=== PATIENT | female | born 1965 | race Caucasian/White ===

== ENCOUNTER 2024-08-18 07:55 | Outpatient (AMB) | payer MEDICAID, SELFPAY ==
[2024-08-18 08:14] VITALS: BP 121/72; PULSE 96; RESP 19; TEMP 35.4; O2SAT 95; BMI 39.7
--- NOTE | 2024-08-18 08:14 | PD.ORTHCLVIS ---
Vital signs 08/18/24 08:14 Height 1.7 m Height Method Stated Weight 114.872 kg Weight Measurement Method Standing Scale BMI 39.7 BP 121/72 Blood Pressure Source Automatic Cuff Blood Pressure Location Left Upper Arm Position Sitting Respiration 19 Pulse 96 Pulse Source Monitor Temp 95.8 F L Temp Source Temporal Artery Scan Pulse Oximetry (%) 95 Oxygen Delivery Method Room Air Med/Allergies Allergies & Medications Allergies shellfish derived Allergy (Unknown, Verified 08/18/24 08:15) Medication Reconciliation lisinopril 30 mg tablet 60 mg PO QDAY #0 tabs 01/01/15 [History Confirmed 08/18/24] Cetirizine * (ZYRTEC *) 5 mg PO QAM #0 tabs 04/12/16 [History Confirmed 08/18/24] furosemide 20 mg tablet (Lasix) 20 mg PO QDAY #0 tabs 04/12/16 [History Confirmed 08/18/24] albuterol sulfate 90 mcg/actuation aerosol inhaler (ProAir HFA) 2 puff inhalation Q4HR PRN WHEEZING #1 inh 06/18/17 [Rx Confirmed 08/18/24] apixaban 5 mg tablet (Eliquis) 5 mg PO BID Blood Thinner #60 tabs 06/18/17 [Rx Confirmed 08/18/24] cephalexin 500 mg capsule (Keflex) 500 mg PO QID #30 caps 01/06/18 [Rx Confirmed 08/18/24] dextromethorphan-guaifenesin 10 mg-200 mg capsule (Robitussin Cough-Chest Congestion DM) 1 tab-cap PO Q6H PRN cough #20 caps 01/06/18 [Rx Confirmed 08/18/24] meloxicam 7.5 mg tablet 7.5 mg PO QDAY #45 tabs 11/09/23 [Rx Confirmed 08/18/24] meloxicam 7.5 mg tablet 7.5 mg PO QDAY #45 tabs 02/15/24 [Rx Confirmed 08/18/24] meloxicam 7.5 mg tablet 7.5 mg PO QDAY #45 tabs 05/19/24 [Rx Confirmed 08/18/24] Exam Exam Patient is in no acute distress and is cooperative with the examination today. Breathing is nonlabored. In no respiratory distress. Bilateral extremities were evaluated and demonstrates sensation intact to light touch. Palpable pedal pulses are present. No significant edema is present. Bilateral hips were examined. The patient has no pain with log roll of the hips. Internal rotation to 30 degrees and external rotation to 30 degrees is painless. Negative FADIR. The left knee was examined. The left knee is in [varus] alignment. Range of motion from [0-115] degrees. Knee is stable to varus and valgus as well as AP translation with <5mm. Patient has a [negative] McMurrays. There is [no] pain with patellofemoral compression and [no] crepitus noted. The knee is [tender] to palpation [medially]. The right knee was also examined. The right knee is in [varus] alignment. Range of motion from [0-120] degrees. Knee is stable to varus and valgus as well as AP translation with <5mm. Patient has a [negative] McMurrays. There is [no] pain with patellofemoral compression and [no] crepitus noted. The knee is [tender] to palpation [medially]. X-rays demonstrate moderate arthritis bilaterally. The joint space narrowing is severe on the left and moderate on the left. Assessment and Plan Problem List (1) Bilateral knee pain: Status: Acute Plan: Patient is a pleasant 58-year-old female with bilateral knee pain and osteoarthritis. She ambulates using a walker. The pains been affecting quality of life. The patient continues to lose weight and the lymphedema is certainly better than when I last saw her. We will see if she can continue to lose weight. She should get a medical and cardiac clearance from her primary care doctor in preparation for surgery. I want to make sure she is optimized medically before you proceed (2) Bilateral primary osteoarthritis of knee: Status: Acute Office Procedures GNS Level of Care Nursing/Assessment Patient Status: Established Patient Nursing Assessment/Reassesment: Medication Reconciliation, Update PMH in EMR and Vital Signs Coordination of Care: Complex Care and Chronic Disease 1-5, Consent,records obtained, informed consent, Education Simp Pt/Fam, Results/Orders obtained and Staff clarify orders Established Patient Charge Established Patient Point Assignment: 90 Established Patient Point Charge: EP Level 3 (80-115) [place] Intake Visit Data Collection New Patient or Established: Established Patient (seen at [facility] within 3 years) Reason for Visit:: 3 MONTH FOLLOW UP Seen by Clinical Staff ONLY (RN/MA): No Parcel Post 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 Required: No PCP or OBGYN visit in last 3 months: Yes Hx Now: No Do You Feel Safe at Home: Yes Authorities Contacted: N/A Questionairres Past Medical History Past Medical History Have you ever been diagnosed with any of the following: Cardiology Problems Myocardial Infarction: Yes (x 2 per pt 2004 &2009) Congestive Heart Failure: No Hypertension: Yes Respiratory Problems Chronic Obstructive Pulmonary Disease (COPD): No Smoking: No Smoking Cessation Counseling: No Smoking Exposure: No Tobacco Use: No Clubbing: No Exposure to Respiratory Irritants: No Intubation: No Genital/Urinary Problems Renal Disease: No Musculoskeletal Problems Arthritis: Yes (rt knee) Endocrine Problems Diabetes Mellitus Type 1: No Diabetes Mellitus Type 2: No Subjective Visit Visit for: follow up visit and knee Immunization / Flu Flu Vaccine in the Last 12 Months: No Flu Vaccine Exclusion Criteria: No Exclusion Criteria History of Present Illness Chief complaint: Bilateral knee pain Jeanette is a pleasant 59-year-old female with bilateral knee pain and bilateral knee arthritis. We have been seeing her for over a year. We have been doing injections but she reports they only last about 3 to 4 weeks at this time. She does have lymphedema and it is under control. She continues to lose weight based on diet alone Pain Pain level (0-10): 9 Pain duration: CONSTANT Pain location: inside (medial) and outside (lateral) Pain quality: sharp, aching and burning Pain timing: night, increases with activity and stairs Associated signs & symptoms: stiffness Ambulatory data Ambulatory device: walker Treatments Improvement with previous injections: No Improvement with PT: No Improvement with NSAIDS: no Review of Systems Review of Systems: All systems negative unless otherwise noted in HPI.
== END 2024-08-18 08:35 | disposition home or self-care (01) ==
LOC: HODSRG 07:55
PROVIDERS: Supervising Provider Orthopaedic Surgery Adult Reconstructive Orthopaedic Surgery; Visit Provider Orthopaedic Surgery Adult Reconstructive Orthopaedic Surgery
DX: M25.562 Pain in left knee (principal); M25.561 Pain in right knee; M17.0 Bilateral primary osteoarthritis of knee; I89.0 Lymphedema, not elsewhere classified; I10 Essential (primary) hypertension; I25.2 Old myocardial infarction
CPT/HCPCS: 99213; G0463

== ENCOUNTER 2024-11-10 08:00 | Outpatient (AMB) | payer MEDICAID, SELFPAY ==
[2024-11-10 08:14] VITALS: BP 121/80; PULSE 76; RESP 18; TEMP 36.5; O2SAT 98; BMI 41.3
--- NOTE | 2024-11-10 08:14 | ORTHONT_ITS ---
Vital signs 11/10/24 08:14 Height 1.7 m Height Method Stated Weight 119.38 kg Weight Measurement Method Standing Scale BMI 41.3 BP 121/80 Blood Pressure Source Automatic Cuff Blood Pressure Location Right Upper Arm Position Sitting Respiration 18 Pulse 76 Pulse Source Monitor Temp 97.7 F Temp Source Temporal Artery Scan Pulse Oximetry (%) 98 Oxygen Delivery Method Room Air Med/Allergies Allergies & Medications Allergies shellfish derived Allergy (Unknown, Verified 11/10/24 08:16) Medication Reconciliation lisinopril 30 mg tablet 60 mg PO QDAY #0 tabs 01/01/15 [History Confirmed ] Cetirizine * (ZYRTEC *) 5 mg PO QAM #0 tabs 04/12/16 [History Confirmed 11/10/24] furosemide 20 mg tablet (Lasix) 20 mg PO QDAY #0 tabs 04/12/16 [History Confirmed 11/10/24] albuterol sulfate 90 mcg/actuation aerosol inhaler (ProAir HFA) 2 puff inhalation Q4HR PRN WHEEZING #1 inh 06/18/17 [Rx Confirmed 11/10/24] apixaban 5 mg tablet (Eliquis) 5 mg PO BID Blood Thinner #60 tabs 06/18/17 [Rx Confirmed 11/10/24] cephalexin 500 mg capsule (Keflex) 500 mg PO QID #30 caps 01/06/18 [Rx Confirmed 11/10/24] dextromethorphan-guaifenesin 10 mg-200 mg capsule (Robitussin Cough-Chest Congestion DM) 1 tab-cap PO Q6H PRN cough #20 caps 01/06/18 [Rx Confirmed 11/10/24] meloxicam 7.5 mg tablet 7.5 mg PO QDAY #45 tabs 11/09/23 [Rx Confirmed 11/10/24] meloxicam 7.5 mg tablet 7.5 mg PO QDAY #45 tabs 02/15/24 [Rx Confirmed 11/10/24] meloxicam 7.5 mg tablet 7.5 mg PO QDAY #45 tabs 05/19/24 [Rx Confirmed 11/10/24] Exam Exam Patient is in no acute distress and is cooperative with the examination today. Breathing is nonlabored. In no respiratory distress. Bilateral extremities were evaluated and demonstrates sensation intact to light touch. Palpable pedal pulses are present. No significant edema is present. Bilateral hips were examined. The patient has no pain with log roll of the hips. Internal rotation to 30 degrees and external rotation to 30 degrees is painless. Negative FADIR. The left knee was examined. The left knee is in [varus] alignment. Range of motion from [0-115] degrees. Knee is stable to varus and valgus as well as AP translation with <5mm. Patient has a [negative] McMurrays. There is [no] pain with patellofemoral compression and [no] crepitus noted. The knee is [tender] to palpation [medially]. The right knee was also examined. The right knee is in [varus] alignment. Range of motion from [0-120] degrees. Knee is stable to varus and valgus as well as AP translation with <5mm. Patient has a [negative] McMurrays. There is [no] pain with patellofemoral compression and [no] crepitus noted. The knee is [tender] to palpation [medially]. X-rays demonstrate moderate arthritis bilaterally. The joint space narrowing is severe Assessment and Plan Problem List (1) Bilateral knee pain: Status: Acute Plan: Patient is a pleasant 58-year-old female with bilateral knee pain and osteoarthritis. She ambulates using a walker. The pains been affecting quality of life. The patient continues to lose weight and the lymphedema is certainly better than when I last saw her. We will see if she can continue to lose weight. Recommend knee cortisone injections as patient would like to proceed with conservative treatment at this time. The risks and benefits of the procedure were reviewed with the patient and patient gave verbal consent to continue with the procedure. Procedure: performed by Dr. Rangel Using sterile technique the Bilateral knees were thoroughly prepped with alcohol, and approximately 1 cc of Kenalog 40 mg/mL and 4 cc of 1% lidocaine was injected into each knee without resistance into the medial tibial femoral joint space. The patient tolerated the procedure. She reports a lot of right hip pain we will get new x-rays (2) Bilateral primary osteoarthritis of knee: Status: Acute Office Procedures GNS Level of Care Nursing/Assessment Patient Status: Established Patient Nursing Assessment/Reassesment: Medication Reconciliation, Update PMH in EMR and Vital Signs Coordination of Care: Complex Care and Chronic Disease 1-5, Education Complex Pt/Fam, Consent,records obtained, informed consent, Results/Orders obtained and Staff clarify orders Established Patient Charge Established Patient Point Assignment: 95 Established Patient Point Charge: EP Level 3 (80-115) Surgical Proc/IM SQ injection Major Surgical Procedure: Yes (BILATERAL KNEE INJECTION) Medication Given Medication Given Medication Given: Yes Documented Dose Given: 8 Route: Infiitration Medication Given Medication Given Medication Given: Yes Documented Dose Given: 2 Route: Infiitration Office Meds Xylocaine 10 mg/mL (1 %) injection solution Performing Provider: Sammy Rangel MD Performing Location: [facility] Administered by: Sammy Rangel MD on 11/10/24 09:25 Dose Route Admin Location Dispensed Lot Number Expiration Date [facility] [employer]ing Specialist 40 mL Infiltration 40 mL [id number] 02/06/28 95071-759-19 [facility] triamcinolone acetonide 40 mg/mL suspension for injection Performing Provider: Sammy Rangel MD Performing Location: [facility] Administered by: Sammy Rangel MD on 11/10/24 09:25 Dose Route Admin Location Dispensed Lot Number Expiration Date [facility] Contracting Specialist 80 mg Infiltration 2 mL [id number] 01/05/26 8432-4125-03 [employer] [place] Intake Visit Data Collection New Patient or Established: Established Patient (seen at [facility] within 3 years) Reason for Visit:: 3 MONTH FOLLOW UP Seen by Clinical Staff ONLY (RN/MA): No Verbal consent obtained for Telemed visit?: No 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: No PCP or OBGYN visit in last 3 months: Yes Hx Now: No Do You Feel Safe at Home: Yes Authorities Contacted: N/A Questionairres Past Medical History Past Medical History Have you ever been diagnosed with any of the following: Cardiology Problems Myocardial Infarction: Yes (x 2 per pt 2004 &2009) Congestive Heart Failure: No Hypertension: Yes Respiratory Problems Chronic Obstructive Pulmonary Disease (COPD): No Smoking: No Smoking Cessation Counseling: No Smoking Exposure: No Tobacco Use: No Clubbing: No Exposure to Respiratory Irritants: No Intubation: No Genital/Urinary Problems Renal Disease: No Musculoskeletal Problems Arthritis: Yes (rt knee) Endocrine Problems Diabetes Mellitus Type 1: No Diabetes Mellitus Type 2: No Subjective Visit Visit for: follow up visit Immunization / Flu Flu Vaccine in the Last 12 Months: No Flu Vaccine Exclusion Criteria: No Exclusion Criteria History of Present Illness Chief complaint: 3 MONTH FOLLOW UP Jeanette is a pleasant 59-year-old female with bilateral knee pain and bilateral knee arthritis. We have been seeing her for over a year. We have been doing injections but she reports they only last about 3 to 4 weeks at this time. She does have lymphedema and it is under control. She continues to lose weight based on diet alone. She reports the right hip has been hurting quite a bit. We will order x-rays of the right hip Pain Pain level (0-10): 8 Pain duration: COMES AND GOES Pain location: inside (medial) and outside (lateral) Pain quality: sharp Pain timing: night, increases with activity and stairs Associated signs & symptoms: stiffness Ambulatory data Ambulatory device: walker Treatments Improvement with previous injections: No Improvement with PT: No Improvement with NSAIDS: no Review of Systems Review of Systems: All systems negative unless otherwise noted in HPI.
--- NOTE | 2024-11-10 08:34 | XR_ITS ---
Examination:Right hip AP, lateral, AP pelvis 3 views Technique: Hip AP lateral, AP pelvis, 3 views Exam date and time:November 10, 2024 0847 hours Comparison March 23, 2016 INDICATIONS: Right hip pain years. FINDINGS: Moderate right hip osteoarthritis No right hip fracture or dislocation Mild to moderate narrowing left hip joint Bones of the pelvis intact IMPRESSION: Moderate right hip osteoarthritis.
== END 2024-11-10 08:43 | disposition home or self-care (01) ==
PROVIDERS: Supervising Provider Orthopaedic Surgery Adult Reconstructive Orthopaedic Surgery; Visit Provider Orthopaedic Surgery Adult Reconstructive Orthopaedic Surgery
DX: M25.562 Pain in left knee (principal); M25.561 Pain in right knee; M17.0 Bilateral primary osteoarthritis of knee; I89.0 Lymphedema, not elsewhere classified; I10 Essential (primary) hypertension; I25.2 Old myocardial infarction
CPT/HCPCS: 20610; 73502; 99213; J3301; J3490; G0463

== ENCOUNTER 2024-11-23 08:03 | Outpatient (AMB) | payer MEDICAID, SELFPAY ==
[2024-11-23 08:16] VITALS: BP 109/68; PULSE 65; RESP 17; TEMP 36.9; O2SAT 94; BMI 40.0
--- NOTE | 2024-11-23 08:16 | ORTHONT_ITS ---
Vital signs 11/23/24 08:16 Height 1.7 m Height Method Stated Weight 115.723 kg Weight Measurement Method Standing Scale BMI 40.0 BP 109/68 Blood Pressure Source Automatic Cuff Blood Pressure Location Right Upper Arm Position Sitting Respiration 17 Pulse 65 Pulse Source Monitor Temp 98.4 F Temp Source Temporal Artery Scan Pulse Oximetry (%) 94 L Oxygen Delivery Method Room Air Med/Allergies Allergies & Medications Allergies shellfish derived Allergy (Unknown, Verified 11/23/24 08:17) Medication Reconciliation lisinopril 30 mg tablet 60 mg PO QDAY #0 tabs 01/01/15 [History Confirmed 11/23/24] Cetirizine * (ZYRTEC *) 5 mg PO QAM #0 tabs 04/12/16 [History Confirmed 11/23/24] furosemide 20 mg tablet (Lasix) 20 mg PO QDAY #0 tabs 04/12/16 [History Confirmed 11/23/24] albuterol sulfate 90 mcg/actuation aerosol inhaler (ProAir HFA) 2 puff inhalation Q4HR PRN WHEEZING #1 inh 06/18/17 [Rx Confirmed 11/23/24] apixaban 5 mg tablet (Eliquis) 5 mg PO BID Blood Thinner #60 tabs 06/18/17 [Rx Confirmed 11/23/24] cephalexin 500 mg capsule (Keflex) 500 mg PO QID #30 caps 01/06/18 [Rx Confirmed 11/23/24] dextromethorphan-guaifenesin 10 mg-200 mg capsule (Robitussin Cough-Chest Congestion DM) 1 tab-cap PO Q6H PRN cough #20 caps 01/06/18 [Rx Confirmed 11/23/24] meloxicam 7.5 mg tablet 7.5 mg PO QDAY #45 tabs 11/09/23 [Rx Confirmed 11/23/24] meloxicam 7.5 mg tablet 7.5 mg PO QDAY #45 tabs 02/15/24 [Rx Confirmed 11/23/24] meloxicam 7.5 mg tablet 7.5 mg PO QDAY #45 tabs 05/19/24 [Rx Confirmed 11/23/24] Exam Exam Patient is in no acute distress and is cooperative with the examination today. Breathing is nonlabored. In no respiratory distress. Bilateral extremities were evaluated and demonstrates sensation intact to light touch. Palpable pedal pulses are present. No significant edema is present. Bilateral hips were examined. The patient has no pain with log roll of the hips. Internal rotation to 30 degrees and external rotation to 30 degrees is painless. Negative FADIR. The left knee was examined. The left knee is in [varus] alignment. Range of motion from [0-115] degrees. Knee is stable to varus and valgus as well as AP translation with <5mm. Patient has a [negative] McMurrays. There is [no] pain with patellofemoral compression and [no] crepitus noted. The knee is [tender] to palpation [medially]. The right knee was also examined. The right knee is in [varus] alignment. Range of motion from [0-120] degrees. Knee is stable to varus and valgus as well as AP translation with <5mm. Patient has a [negative] McMurrays. There is [no] pain with patellofemoral compression and [no] crepitus noted. The knee is [tender] to palpation [medially]. X-rays demonstrate moderate arthritis bilaterally. X-rays of the bilateral hips demonstrate moderate arthritis Assessment and Plan Problem List (1) Bilateral knee pain: Status: Acute Plan: Patient is a pleasant 58-year-old female with bilateral knee pain and osteoarthritis. She ambulates using a walker. The patient continues to lose weight and the lymphedema is certainly better than when I last saw her. We will see if she can continue to lose weight. Recommend knee cortisone injections as patient would like to proceed with conservative treatment at this time. The risks and benefits of the procedure were reviewed with the patient and patient gave verbal consent to continue with the procedure. Procedure: performed by Dr. Rangel Using sterile technique the Bilateral knees were thoroughly prepped with alcohol, and approximately 1 cc of Kenalog 40 mg/mL and 4 cc of 1% lidocaine was injected into each knee without resistance into the medial tibial femoral joint space. The patient tolerated the procedure. (2) Bilateral primary osteoarthritis of knee: Status: Acute Office Procedures GNS Level of Care Nursing/Assessment Patient Status: Established Patient Nursing Assessment/Reassesment: Medication Reconciliation and Update PMH in EMR Coordination of Care: Complex Care and Chronic Disease 1-5, Consent,records obtained, informed consent, Education Simp Pt/Fam, Results/Orders obtained and Staff clarify orders Established Patient Charge Established Patient Point Assignment: 75 Established Patient Point Charge: EP Level 2 (40-75) [place] Intake Visit Data Collection New Patient or Established: Established Patient (seen at [facility] within 3 years) Reason for Visit:: FOLLOW UP RT HIP XRAY Seen by Clinical Staff ONLY (RN/MA): No Plumber And 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 Required: No PCP or OBGYN visit in last 3 months: Yes Hx Now: No Do You Feel Safe at Home: Yes Authorities Contacted: N/A Questionairres Past Medical History Past Medical History Have you ever been diagnosed with any of the following: Cardiology Problems Myocardial Infarction: Yes (x 2 per pt 2004 &2009) Congestive Heart Failure: No Hypertension: Yes Respiratory Problems Chronic Obstructive Pulmonary Disease (COPD): No Smoking: No Smoking Cessation Counseling: No Smoking Exposure: No Tobacco Use: No Clubbing: No Exposure to Respiratory Irritants: No Intubation: No Genital/Urinary Problems Renal Disease: No Musculoskeletal Problems Arthritis: Yes (rt knee) Endocrine Problems Diabetes Mellitus Type 1: No Diabetes Mellitus Type 2: No Subjective Visit Visit for: follow up visit and hip (RIGHT HIP) Immunization / Flu Flu Vaccine in the Last 12 Months: Yes Flu Vaccine Exclusion Criteria: Already Received History of Present Illness Chief complaint: 3 MONTH FOLLOW UP Jeanette is a pleasant 59-year-old female with bilateral knee pain and bilateral knee arthritis. We have been seeing her for over a year. We have been doing injections but she reports they only last about 3 to 4 weeks at this time. She does have lymphedema and it is under control. She continues to lose weight based on diet alone. Personal History Red flag PMH: none Pain Pain level (0-10): 6 Pain duration: 1 DAY Pain location: groin Pain quality: sharp Pain timing: increases with activity (MANAGER UNIT ) Associated signs & symptoms: none Ambulatory data Ambulatory device: walker Walking distance (minutes): 5 Treatments Number of previous injections: 0 Improvement with previous injections: No Number of Physical Therapy sessions: 0 Improvement with PT: No Improvement with NSAIDS: n/a Review of Systems Review of Systems: All systems negative unless otherwise noted in HPI.
== END 2024-11-23 08:46 | disposition home or self-care (01) ==
LOC: HODSRG 08:03
PROVIDERS: Supervising Provider Orthopaedic Surgery Adult Reconstructive Orthopaedic Surgery; Visit Provider Orthopaedic Surgery Adult Reconstructive Orthopaedic Surgery
DX: M25.562 Pain in left knee (principal); M25.561 Pain in right knee; M17.0 Bilateral primary osteoarthritis of knee; I10 Essential (primary) hypertension; I25.2 Old myocardial infarction; I89.0 Lymphedema, not elsewhere classified
CPT/HCPCS: 20610; 99212; 99213; J3301; J3490; G0463

== ENCOUNTER 2025-03-02 08:12 | Outpatient (AMB) | payer MEDICAID, SELFPAY ==
--- NOTE | 2025-03-02 08:16 | PD.ORTHCLVIS ---
Vital signs 03/02/25 08:22 Height 1.7 m Height Method Measured Weight 115.468 kg Weight Measurement Method Standing Scale BMI 39.9 BP 107/72 Blood Pressure Source Automatic Cuff Blood Pressure Location Right Upper Arm Position Sitting Respiration 18 Pulse 91 Pulse Source Monitor Temp 96.1 F L Temp Source Temporal Artery Scan Pulse Oximetry (%) 94 L Oxygen Delivery Method Room Air Med/Allergies Allergies & Medications Allergies shellfish derived Allergy (Unknown, Verified 03/02/25 08:23) Medication Reconciliation lisinopril 30 mg tablet 60 mg PO QDAY #0 tabs 01/01/15 [History Confirmed 03/02/25] Cetirizine * (ZYRTEC *) 5 mg PO QAM #0 tabs 04/12/16 [History Confirmed 03/02/25] furosemide 20 mg tablet (Lasix) 20 mg PO QDAY #0 tabs 04/12/16 [History Confirmed 03/02/25] albuterol sulfate 90 mcg/actuation aerosol inhaler (ProAir HFA) 2 puff inhalation Q4HR PRN WHEEZING #1 inh 06/18/17 [Rx Confirmed 03/02/25] apixaban 5 mg tablet (Eliquis) 5 mg PO BID Blood Thinner #60 tabs 06/18/17 [Rx Confirmed 03/02/25] cephalexin 500 mg capsule (Keflex) 500 mg PO QID #30 caps 01/06/18 [Rx Confirmed 03/02/25] dextromethorphan-guaifenesin 10 mg-200 mg capsule (Robitussin Cough-Chest Congestion DM) 1 tab-cap PO Q6H PRN cough #20 caps 01/06/18 [Rx Confirmed 03/02/25] meloxicam 7.5 mg tablet 7.5 mg PO QDAY #45 tabs 11/09/23 [Rx Confirmed 03/02/25] meloxicam 7.5 mg tablet 7.5 mg PO QDAY #45 tabs 02/15/24 [Rx Confirmed 03/02/25] meloxicam 7.5 mg tablet 7.5 mg PO QDAY #45 tabs 05/19/24 [Rx Confirmed 03/02/25] Exam Exam Patient is in no acute distress and is cooperative with the examination today. Breathing is nonlabored. In no respiratory distress. Bilateral extremities were evaluated and demonstrates sensation intact to light touch. Palpable pedal pulses are present. No significant edema is present. Bilateral hips were examined. The patient has no pain with log roll of the hips. Internal rotation to 30 degrees and external rotation to 30 degrees is painless. Negative FADIR. The left knee was examined. The left knee is in [varus] alignment. Range of motion from [0-115] degrees. Knee is stable to varus and valgus as well as AP translation with <5mm. Patient has a [negative] McMurrays. There is [no] pain with patellofemoral compression and [no] crepitus noted. The knee is [tender] to palpation [medially]. The right knee was also examined. The right knee is in [varus] alignment. Range of motion from [0-120] degrees. Knee is stable to varus and valgus as well as AP translation with <5mm. Patient has a [negative] McMurrays. There is [no] pain with patellofemoral compression and [no] crepitus noted. The knee is [tender] to palpation [medially]. X-rays demonstrate moderate arthritis bilaterally. X-rays of the bilateral hips demonstrate moderate arthritis Assessment and Plan Problem List (1) Bilateral knee pain: Status: Acute Plan: Patient is a pleasant 58-year-old female with bilateral knee pain and osteoarthritis. She ambulates using a walker. The patient continues to lose weight and the lymphedema is certainly better than when I last saw her. We will see if she can continue to lose weight. Recommend knee cortisone injection as patient would like to proceed with conservative treatment at this time. The risks and benefits of the procedure were reviewed with the patient and patient gave verbal consent to continue with the procedure. Procedure: performed by Dr. Rangel Using sterile technique the Right knee was thoroughly prepped with alcohol, and approximately 1 cc of Depo-Medrol 80mg/mL and 4 cc of 0.2% ropivacaine was injected without resistance into the medial tibial femoral joint space. The patient tolerated the procedure. Recommend knee cortisone injection as patient would like to proceed with conservative treatment at this time. The risks and benefits of the procedure were reviewed with the patient and patient gave verbal consent to continue with the procedure. Procedure: performed by Dr. Rangel Using sterile technique the left knee was thoroughly prepped with alcohol, and approximately 1 cc of Depo-Medrol 80mg/mL and 4 cc of 0.2% ropivacaine was injected without resistance into the medial tibial femoral joint space. The patient tolerated the procedure. (2) Bilateral primary osteoarthritis of knee: Status: Acute Office Procedures GNS Level of Care Nursing/Assessment Patient Status: Established Patient Nursing Assessment/Reassesment: Medication Reconciliation, Update PMH in EMR and Vital Signs Coordination of Care: Complex Care and Chronic Disease 1-5, Education Complex Pt/Fam, Consent,records obtained, informed consent, Results/Orders obtained and Staff clarify orders Established Patient Charge Established Patient Point Assignment: 95 Established Patient Point Charge: Level 3 (80-115) Surgical Proc/IM SQ injection Major Surgical Procedure: Yes (BILATERAL KNEE INJECTION) Medication Given Medication Given Medication Given: Yes Documented Dose Given: 1 Route: Infiitration Medication Given Medication Given Medication Given: Yes Documented Dose Given: 1 Route: Infiitration Medication Given Medication Given Medication Given: Yes Documented Dose Given: 4 Route: Infiitration Medication Given Medication Given Medication Given: Yes Documented Dose Given: 4 Route: Infiitration Office Meds methylprednisolone acetate 80 mg/mL suspension for injection Performing Provider: Sammy Rangel MD Performing Location: [facility] Administered by: Sammy Rangel MD on 03/02/25 08:38 Dose Route Admin Location Dispensed Lot Number Expiration Date [facility] [employer] 80 mg intra-articular KNEE 1 mL [id number] 07/08/26 [address]-0 [employer] methylprednisolone acetate 80 mg/mL suspension for injection Performing Provider: Sammy Rangel MD Performing Location: [facility] Administered by: Sammy Rangel MD on 03/02/25 08:38 Dose Route Admin Location Dispensed Lot Number Expiration Date [facility] [employer] 80 mg intra-articular KNEE 1 mL [id number] 07/08/26 [address]-9 [employer] ropivacaine (PF) 2 mg/mL (0.2 %) injection solution Performing Provider: Sammy Rangel MD Performing Location: [facility] Administered by: Sammy Rangel MD on 03/02/25 08:38 Dose Route Admin Location Dispensed Lot Number Expiration Date [facility] [employer] 20 mL Infiltration KNEE 20 mL [id number] 07/08/26 70909-229-75 [employer] ropivacaine (PF) 2 mg/mL (0.2 %) injection solution Performing Provider: Sammy Rangel MD Performing Location: [facility] Administered by: Sammy Rangel MD on 03/02/25 08:38 Dose Route Admin Location Dispensed Lot Number Expiration Date [facility] [employer] 20 mL Infiltration KNEE 20 mL [id number] 07/08/26 73150-210-55 [facility] [place] Intake Visit Data Collection New Patient or Established: Established Patient (seen at [facility] within 3 years) Reason for Visit:: KNEE INJECTION Seen by Clinical Staff ONLY (RN/MA): No [employer] Required: No PCP or OBGYN visit in last 3 months: Yes Hx Now: No Do You Feel Safe at Home: Yes Authorities Contacted: N/A Questionairres Past Medical History Past Medical History Have you ever been diagnosed with any of the following: Neurological Problems Cerebrovascular Accident (CVA): No Transient Ischemic Attacks (TIA): No Dementia: No Alzheimer's Disease: No Parkinson's Disease: No Brain Tumor: No Meningitis: No Seizures: No Epilepsy: No Multiple Sclerosis: No Cerebral Palsy: No Amyotrophic Lateral Sclerosis (ALS/Criselda Gehrig's): No Guillain-Point Syndrome: No Spina Bifida: No Paralysis: No Peripheral Neuropathy: No Gibbs's Palsy: No Subdural Hematoma: No Migraine: No Head Trauma: No Spinal Cord Injury: No Traumatic Brain Injury: No Cardiology Problems Myocardial Infarction: Yes (x 2 per pt 2004 &2009) Cardiac Arrhythmia: No Atrial Fibrillation: No Angina: No Heart Murmur: No Coronary Artery Disease: No Atherosclerotic Heart Disease: No Peripheral Vascular Disease: No Hypercholesterolemia: No Aneurysm: No Congestive Heart Failure: No Congenital Heart Disease: No Valvular Heart Disease: No Rheumatic Fever: No Cardiomyopathy: No Edema: No Pericarditis: No Cellulitis: No Deep Vein Thrombosis: No Hypertension: Yes Hypotension: No Varicose Veins: No Respiratory Problems Chronic Obstructive Pulmonary Disease (COPD): No Asthma: No Bronchitis: No Emphysema: No Pneumonia: No Pulmonary Fibrosis: No Tuberculosis: No Pulmonary Embolism: No Pulmonary Edema: No Sleep Apnea: No CPAP Dependent: No Respiratory Aspiration: No Dyspnea: No Orthopnea: No Hx Cough: No Cough: No Wheezing: No Chest Deformities: No Smoking: No Smoking Cessation Counseling: No Smoking Exposure: No Tobacco Use: No Clubbing: No Exposure to Respiratory Irritants: No Intubation: No Stomache/Intestinal Problems Liver Cancer: No Hepatitis: No Cirrhosis: No Pancreatic Cancer: No Pancreatitis: No Celiac Disease: No Gall Bladder Disease: No Gastrointestinal Bleed: No Esophageal Varices: No Hines's Esophagus: No Colitis: No Ulcerative Colitis: No Diverticulitis: No Diverticulosis: No Ulcer: No Colorectal Cancer: No Irritable Bowel: No Crohn's Disease: No Obstructive Bowel: No Hiatal Hernia: No Hemorrhoids: No Gastroesophageal Reflux Disease: No Polyps: No Obesity: No Genital/Urinary Problems Chronic Kidney Disease: No Renal Disease: No Kidney Stones: No Polycystic Kidney Disease: No Neurogenic Bladder: No Inguinal Hernia: No Dialysis: No Reproductive Problems Breast Cancer: No Endometriosis: No Fibroids: No Genital Herpes: No Gonorrhea: No Pelvic Inflammatory Disease: No Polycystic Ovarian Syndrome: No Previous Pregnancies: No Syphilis: No Uterine Prolapse: No Musculoskeletal Problems Muscular Dystrophy: No Myasthenia Gravis: No Marfan's Syndrome: No Bone Cancer: No Arthritis: Yes (rt knee) Rheumatoid Arthritis: No Osteoporosis: No Degenerative Disk Disease: No Gout: No Scoliosis: No Carpal Tunnel Syndrome: No Fibromyalgia: No Fractures: No Degenerative Joint Disease: No Osteomyelitis: No Poliovirus: No Head,Eye,Nose,Throat Problems Cataracts: No Glaucoma: No Blind: No Retinal Detachment: No Macular Degeneration: No Chronic Ear Infections: No Deafness: No Eye Prosthesis: No Endocrine Problems Diabetes Mellitus Type 1: No Diabetes Mellitus Type 2: No Hypoglycemia: No Vermillion's Syndrome: No Chuck's Disease: No Hyperthyroidism: No Hypothyroidism: No Thyroid Cancer: No Parathyroid Disease: No Pituitary Disease: No Systemic Lupus Erythematosus: No Syndrome of Inappropriate Antidiuretic Hormone: No Adrenal Disease: No Graves' Disease: No Blood Problems Anemia: No Leukemia: No Hemophilia: No Thalassemia: No Sickle Cell Disease: No Clotting Problems: No Psychologic Problems Schizophrenia: No Recreational Drug Use: No Bipolar Disorder: No Depression: No Anxiety: No Behavior Problems: No Self-Mutilation: No Attention Deficit Disorder: No Attention Deficit Hyperactivity Disorder: No Depression: No Post Traumatic Stress Disorder: No Eating Disorder: No Other Problems Hospitalization: No Autoimmune Disease: No Down Syndrome: No Autism: No Developmental Delay: No Cosmetic Surgery: No Shingles: No Falls: No Blood Transfusions: No Blood Transfusion Reaction: No Anesthesia Reactions: No Organ Transplant: No Chemotherapy: No Radiation Therapy: No Hyperbaric Therapy: No MRSA: No VRSA: No Vancomycin-Resistant Enterococci: No Human Immunodeficiency Virus (HIV): No Chicken Pox: No Measles: No Mumps: No Rubella (Romanian Measles): No Pertussis: No Klebsiella Pneumoniae Carbapenemase Producing Bacteria: No Clostridium Difficile: No Hepatitis A: No Hepatitis B: No Hepatitis C: No Communicable Disease: No Cancer: No Cervical Cancer: No Lung Cancer: No Ovarian Cancer: No Surgical History Angioplasty: No Appendectomy: No Bariatric Surgery: No Breast Surgery: No Cancer Surgery: No Carotid Endarterectomy: No Cholecystectomy: No Colectomy: No Colostomy: No Coronary Artery Bypass Graft: No Valve Replacement: No Herniorrhaphy: No Total Hip Replacement: No Total Knee Replacement: No Hysterectomy: No Pacemaker: No Sinus Surgery: No Splenectomy: No TAHBSO-Total Abdominal Hysterectomy: No Thyroidectomy: No Ureter Stent: No Subjective Visit Visit for: follow up visit and knee Immunization / Flu Flu Vaccine in the Last 12 Months: No Flu Vaccine Exclusion Criteria: No Exclusion Criteria History of Present Illness Chief complaint: KNEE INJECTION Jeanette is a pleasant 59-year-old female with bilateral knee pain and bilateral knee arthritis. We have been seeing her for over a year. We have been doing injections but she reports they only last about 3 to 4 weeks at this time. She does have lymphedema and it is under control. She continues to lose weight based on diet alone. Personal History Red flag PMH: none BMI Counceling provided: Yes Pain Pain level (0-10): 8 Pain duration: 1 DAY Pain location: posterior Pain quality: aching Pain timing: increases with activity Associated signs & symptoms: numbness, weakness and stiffness Ambulatory data Ambulatory device: walker Walking distance (minutes): 5 Treatments Number of previous injections: 12 Improvement with previous injections: Yes Number of Physical Therapy sessions: 0 Improvement with PT: No Improvement with NSAIDS: no Review of Systems Review of Systems: All systems negative unless otherwise noted in HPI.
[2025-03-02 08:22] VITALS: BP 107/72; PULSE 91; RESP 18; TEMP 35.6; O2SAT 94; BMI 39.9
== END 2025-03-02 08:46 | disposition home or self-care (01) ==
LOC: HODSRG 08:12
PROVIDERS: Supervising Provider Orthopaedic Surgery Adult Reconstructive Orthopaedic Surgery; Visit Provider Orthopaedic Surgery Adult Reconstructive Orthopaedic Surgery
DX: M25.562 Pain in left knee (principal); M25.561 Pain in right knee; M17.0 Bilateral primary osteoarthritis of knee; I10 Essential (primary) hypertension; I25.2 Old myocardial infarction
CPT/HCPCS: 20610; 99213; J1010; J2795; G0463

== ENCOUNTER 2025-06-05 08:01 | Outpatient (AMB) | payer MEDICAID, SELFPAY ==
--- NOTE | 2025-06-05 08:10 | ORTHONT_ITS ---
Vital signs 06/05/25 08:20 Height 1.7 m Height Method Measured Weight 114.447 kg Weight Measurement Method Standing Scale BMI 39.6 BP 119/79 Blood Pressure Source Automatic Cuff Blood Pressure Location Left Upper Arm Position Sitting Respiration 19 Pulse 82 Pulse Source Monitor Temp 97.4 F Temp Source Temporal Artery Scan Pulse Oximetry (%) 94 L Oxygen Delivery Method Room Air Med/Allergies Allergies & Medications Allergies shellfish derived Allergy (Unknown, Verified 06/05/25 08:22) Medication Reconciliation lisinopril 30 mg tablet 60 mg PO QDAY #0 tabs 01/01/15 [History Confirmed 06/05/25] Cetirizine * (ZYRTEC *) 5 mg PO QAM #0 tabs 04/12/16 [History Confirmed 06/05/25] furosemide 20 mg tablet (Lasix) 20 mg PO QDAY #0 tabs 04/12/16 [History Confirmed 06/05/25] albuterol sulfate 90 mcg/actuation aerosol inhaler (ProAir HFA) 2 puff inhalation Q4HR PRN WHEEZING #1 inh 06/18/17 [Rx Confirmed 06/05/25] apixaban 5 mg tablet (Eliquis) 5 mg PO BID Blood Thinner #60 tabs 06/18/17 [Rx Confirmed 06/05/25] cephalexin 500 mg capsule (Keflex) 500 mg PO QID #30 caps 01/06/18 [Rx Confirmed 06/05/25] dextromethorphan-guaifenesin 10 mg-200 mg capsule (Robitussin Cough-Chest Congestion DM) 1 tab-cap PO Q6H PRN cough #20 caps 01/06/18 [Rx Confirmed 06/05/25] meloxicam 7.5 mg tablet 7.5 mg PO QDAY #45 tabs 11/09/23 [Rx Confirmed 06/05/25] meloxicam 7.5 mg tablet 7.5 mg PO QDAY #45 tabs 02/15/24 [Rx Confirmed 06/05/25] meloxicam 7.5 mg tablet 7.5 mg PO QDAY #45 tabs 05/19/24 [Rx Confirmed 06/05/25] Exam Exam Patient is in no acute distress and is cooperative with the examination today. Breathing is nonlabored. In no respiratory distress. Bilateral extremities were evaluated and demonstrates sensation intact to light touch. Palpable pedal pulses are present. No significant edema is present. Bilateral hips were examined. The patient has no pain with log roll of the hips. Internal rotation to 30 degrees and external rotation to 30 degrees is painless. Negative FADIR. The left knee was examined. The left knee is in [varus] alignment. Range of motion from [0-115] degrees. Knee is stable to varus and valgus as well as AP translation with <5mm. Patient has a [negative] McMurrays. There is [no] pain with patellofemoral compression and [no] crepitus noted. The knee is [tender] to palpation [medially]. The right knee was also examined. The right knee is in [varus] alignment. Range of motion from [0-120] degrees. Knee is stable to varus and valgus as well as AP translation with <5mm. Patient has a [negative] McMurrays. There is [no] pain with patellofemoral compression and [no] crepitus noted. The knee is [tender] to palpation [medially]. X-rays demonstrate moderate arthritis bilaterally. X-rays of the bilateral hips demonstrate moderate arthritis Assessment and Plan Problem List (1) Bilateral knee pain: Status: Acute Plan: Patient is a pleasant 58-year-old female with bilateral knee pain and osteoarthritis. She ambulates using a walker. The patient continues to lose weight and the lymphedema is certainly better than when I last saw her. We will see if she can continue to lose weight. Recommend knee cortisone injection as patient would like to proceed with conservative treatment at this time. The risks and benefits of the procedure were reviewed with the patient and patient gave verbal consent to continue with the procedure. Procedure: performed by Dr. Rnagel Using sterile technique the Right knee was thoroughly prepped with alcohol, and approximately 1 cc of Depo-Medrol 80mg/mL and 4 cc of 0.2% ropivacaine was injected without resistance into the medial tibial femoral joint space. The patient tolerated the procedure. Recommend knee cortisone injection as patient would like to proceed with conser vative treatment at this time. The risks and benefits of the procedure were reviewed with the patient and patient gave verbal consent to continue with the procedure. Procedure: performed by Dr. Rangel Using sterile technique the left knee was thoroughly prepped with alcohol, and approximately 1 cc of Depo-Medrol 80mg/mL and 4 cc of 0.2% ropivacaine was injected without resistance into the medial tibial femoral joint space. The patient tolerated the procedure. (2) Bilateral primary osteoarthritis of knee: Status: Acute Office Procedures GNS Level of Care Nursing/Assessment Patient Status: Established Patient Nursing Assessment/Reassesment: Medication Reconciliation, Update PMH in EMR and Vital Signs Coordination of Care: Complex Care and Chronic Disease 1-5, Education Complex Pt/Fam, Consent,records obtained, informed consent, Results/Orders obtained and Staff clarify orders Established Patient Charge Established Patient Point Assignment: 95 Established Patient Point Charge: EP Level 3 (80-115) Surgical Proc/IM SQ injection Minor Surgical Procedure: Yes (KNEE INJECTION ) Medication Given Medication Given Medication Given: Yes Documented Dose Given: 2 Route: Infiitration Medication Given Medication Given Medication Given: Yes Documented Dose Given: 8 Route: Infiitration Office Meds methylprednisolone acetate 80 mg/mL suspension for injection Performing Provider: Sammy Rangel MD Performing Location: [facility] Administered by: Sammy Rangel MD on 06/05/25 08:58 Dose Route Admin Location Dispensed Lot Number Expiration Date Pack age [facility] Undergraduate Advisor 160 mg intra-articular KNEE 2 mL [id number] 02/05/27 [address]-9 [id number] [employer] ropivacaine (PF) 2 mg/mL (0.2 %) injection solution Performing Provider: Smamy Rangel MD Performing Location: [facility] Administered by: Sammy Rangel MD on 06/05/25 08:58 Dose Route Admin Location Dispensed Lot Number Expiration Date Pack age [facility] Undergraduate Advisor 40 mL Infiltration KNEE 40 mL [id number] 09/07/27 93001-063-18 [id number] [facility] Intake Visit Data Collection New Patient or Established: Established Patient (seen at [facility] within 3 years) Reason for Visit:: KNEE INJECTION Seen by Clinical Staff ONLY (RN/MA): No [employer] Required: No PCP or OBGYN visit in last 3 months: Yes Hx Now: No Do You Feel Safe at Home: Yes Authorities Contacted: N/A Questionairres Past Medical History Past Medical History Have you ever been diagnosed with any of the following: Neurological Problems Cerebrovascular Accident (CVA): No Transient Ischemic Attacks (TIA): No Dementia: No Alzheimer's Disease: No Parkinson's Disease: No Brain Tumor: No Meningitis: No Seizures: No Epilepsy: No Multiple Sclerosis: No Cerebral Palsy: No Amyotrophic Lateral Sclerosis (ALS/Criselda Gehrig's): No Guillain-Merigold Syndrome: No Spina Bifida: No Paralysis: No Peripheral Neuropathy: No Gibbs's Palsy: No Subdural Hematoma: No Migraine: No Head Trauma: No Spinal Cord Injury: No Traumatic Brain Injury: No Cardiology Problems Myocardial Infarction: Yes (x 2 per pt 2004 &2009) Cardiac Arrhythmia: No Atrial Fibrillation: No Angina: No Heart Murmur: No Coronary Artery Disease: No Atherosclerotic Heart Disease: No Peripheral Vascular Disease: No Hypercholesterolemia: No Aneurysm: No Congestive Heart Failure: No Congenital Heart Disease: No Valvular Heart Disease: No Rheumatic Fever: No Cardiomyopathy: No Edema: No Pericarditis: No Cellulitis: No Deep Vein Thrombosis: No Hypertension: Yes Hypotension: No Varicose Veins: No Respiratory Problems Chronic Obstructive Pulmonary Disease (COPD): No Asthma: No Bronchitis: No Emphysema: No Pneumonia: No Pulmonary Fibrosis: No Tuberculosis: No Pulmonary Embolism: No Pulmonary Edema: No Sleep Apnea: No CPAP Dependent: No Respiratory Aspiration: No Dyspnea: No Orthopnea: No Hx Cough: No Cough: No Wheezing: No Chest Deformities: No Smoking: No Smoking Cessation Counseling: No Smoking Exposure: No Tobacco Use: No Clubbing: No Exposure to Respiratory Irritants: No Intubation: No Stomache/Intestinal Problems Liver Cancer: No Hepatitis: No Cirrhosis: No Pancreatic Cancer: No Pancreatitis: No Celiac Disease: No Gall Bladder Disease: No Gastrointestinal Bleed: No Esophageal Varices: No Hines's Esophagus: No Colitis: No Ulcerative Colitis: No Diverticulitis: No Diverticulosis: No Ulcer: No Colorectal Cancer: No Irritable Bowel: No Crohn's Disease: No Obstructive Bowel: No Hiatal Hernia: No Hemorrhoids: No Gastroesophageal Reflux Disease: No Polyps: No Obesity: No Genital/Urinary Problems Chronic Kidney Disease: No Renal Disease: No Kidney Stones: No Polycystic Kidney Disease: No Neurogenic Bladder: No Inguinal Hernia: No Dialysis: No Reproductive Problems Breast Cancer: No Endometriosis: No Fibroids: No Genital Herpes: No Gonorrhea: No Pelvic Inflammatory Disease: No Polycystic Ovarian Syndrome: No Previous Pregnancies: No Syphilis: No Uterine Prolapse: No Musculoskeletal Problems Muscular Dystrophy: No Myasthenia Gravis: No Marfan's Syndrome: No Bone Cancer: No Arthritis: Yes (rt knee) Rheumatoid Arthritis: No Osteoporosis: No Degenerative Disk Disease: No Gout: No Scoliosis: No Carpal Tunnel Syndrome: No Fibromyalgia: No Fractures: No Degenerative Joint Disease: No Osteomyelitis: No Poliovirus: No Head,Eye,Nose,Throat Problems Cataracts: No Glaucoma: No Blind: No Retinal Detachment: No Macular Degeneration: No Chronic Ear Infections: No Deafness: No Eye Prosthesis: No Endocrine Problems Diabetes Mellitus Type 1: No Diabetes Mellitus Type 2: No Hypoglycemia: No Guilherme's Syndrome: No Chuck's Disease: No Hyperthyroidism: No Hypothyroidism: No Thyroid Cancer: No Parathyroid Disease: No Pituitary Disease: No Systemic Lupus Erythematosus: No Syndrome of Inappropriate Antidiuretic Hormone: No Adrenal Disease: No Graves' Disease: No Blood Problems Anemia: No Leukemia: No Hemophilia: No Thalassemia: No Sickle Cell Disease: No Clotting Problems: No Psychologic Problems Schizophrenia: No Recreational Drug Use: No Bipolar Disorder: No Depression: No Anxiety: No Behavior Problems: No Self-Mutilation: No Attention Deficit Disorder: No Attention Deficit Hyperactivity Disorder: No Depression: No Post Traumatic Stress Disorder: No Eating Disorder: No Other Problems Hospitalization: No Autoimmune Disease: No Down Syndrome: No Autism: No Developmental Delay: No Cosmetic Surgery: No Shingles: No Falls: No Blood Transfusions: No Blood Transfusion Reaction: No Anesthesia Reactions: No Organ Transplant: No Chemotherapy: No Radiation Therapy: No Hyperbaric Therapy: No MRSA: No VRSA: No Vancomycin-Resistant Enterococci: No Human Immunodeficiency Virus (HIV): No Chicken Pox: No Measles: No Mumps: No Rubella (Sami Measles): No Pertussis: No Klebsiella Pneumoniae Carbapenemase Producing Bacteria: No Clostridium Difficile: No Hepatitis A: No Hepatitis B: No Hepatitis C: No Communicable Disease: No Cancer: No Cervical Cancer: No Lung Cancer: No Ovarian Cancer: No Surgical History Angioplasty: No Appendectomy: No Bariatric Surgery: No Breast Surgery: No Cancer Surgery: No Carotid Endarterectomy: No Cholecystectomy: No Colectomy: No Colostomy: No Coronary Artery Bypass Graft: No Valve Replacement: No Herniorrhaphy: No Total Hip Replacement: No Total Knee Replacement: No Hysterectomy: No Pacemaker: No Sinus Surgery: No Splenectomy: No TAHBSO-Total Abdominal Hysterectomy: No Thyroidectomy: No Ureter Stent: No Subjective Visit Visit for: follow up visit and knee Immunization / Flu Flu Vaccine in the Last 12 Months: No Flu Vaccine Exclusion Criteria: No Exclusion Criteria History of Present Illness Chief complaint: KNEE INJECTION Jeanette is a pleasant 59-year-old female with bilateral knee pain and bilateral knee arthritis. We have been seeing her for over a year. We have been doing injections but she reports they only last about 3 to 4 weeks at this time. She does have lymphedema and it is under control. She continues to lose weight based on diet alone. Personal History Red flag PMH: none BMI Counceling provided: Yes Pain Pain level (0-10): 8 Pain duration: 1 DAY Pain location: posterior Pain quality: aching Pain timing: increases with activity Associated signs & symptoms: numbness, weakness and stiffness Ambulatory data Ambulatory device: walker Walking distance (minutes): 5 Treatments Number of previous injections: 12 Improvement with previous injections: Yes Number of Physical Therapy sessions: 0 Improvement with PT: No Improvement with NSAIDS: no Review of Systems Review of Systems: All systems negative unless otherwise noted in HPI.
[2025-06-05 08:20] VITALS: BP 119/79; PULSE 82; RESP 19; TEMP 36.3; O2SAT 94; BMI 39.6
== END 2025-06-05 08:49 | disposition home or self-care (01) ==
LOC: HODSRG 08:01
PROVIDERS: Supervising Provider Orthopaedic Surgery Adult Reconstructive Orthopaedic Surgery; Visit Provider Orthopaedic Surgery Adult Reconstructive Orthopaedic Surgery
DX: M25.562 Pain in left knee (principal); M25.561 Pain in right knee; M17.0 Bilateral primary osteoarthritis of knee; I10 Essential (primary) hypertension
CPT/HCPCS: 20610; 99213; J1010; J2795; G0463